=== PATIENT | female | born 2000 | race Caucasian/White ===

== ENCOUNTER 2022-10-29 15:09 | Outpatient (CLI) | payer BC, SELFPAY ==
--- NOTE | ~2022-10-29 | US_ITS ---
EXAMINATION: US abdomen complete DATE: 10/29/2022 15:32 INDICATION: R10.9 - Unspecified abdominal pain TECHNIQUE: Multiple grayscale and Doppler ultrasound images of the abdomen were obtained. COMPARISON: CT abdomen and pelvis 05/11/2015. FINDINGS: The visualized portions of the pancreas are normal. The liver is normal with normal echogen icity and echotexture. No surface nodularity. Normal hepatopetal flow in the main portal vein. The ga llbladder is normal with no abnormal wall thickening, pericholecystic fluid or stones. The common roselia e duct measures 3 mm. There was no sonographic Avalos sign. The visualized portions of the aorta and inferior vena cava are normal. The right kidney measures 8.3 x 4.1 x 4 cm. The left kidney measures 8.5 x 4.7 x 5.2 cm. The kidneys demonstrate normal parenchymal echogenicity. There is no hydronephrosis. The spleen is normal in appe arance and measures 9 cm. Additional sonographic interrogation of the left mid and lower quadrant in an area of reported pain, with the Valsalva maneuver revealed no abnormality. IMPRESSION: Normal abdominal ultrasound findings. Reviewed, dictated and finalized at location K.
== END 2022-10-29 15:10 ==
PROVIDERS: PCP Nurse Practitioner Family; Visit Provider Nurse Practitioner Family
DX: R10.9 Unspecified abdominal pain (principal)
CPT/HCPCS: 76700